=== PATIENT | male | born 1955 | race Caucasian/White ===

== ENCOUNTER 2017-08-01 16:14 | Inpatient (IN) | payer OTHER ==
--- NOTE | 2017-08-01 17:12 | ED ---
General Adult HPI - General Chief complaint: Shortness of Breath Stated complaint: Sob/hard time staying awake Time Seen by Provider: 08/01/17 17:08 Source: family, RN notes reviewed, old records reviewed Mode of arrival: ambulatory Limitations: no limitations - History of Present Illness Initial comments: This is a 61-year-old male to the ER for evaluation of significant shortness of breath. Patient is poor strain secondary to history of autism. Coming with multiple nonspecific symptoms but underlying cc dying. Patient is able to give heart is racing he feels about pain feels chest pain. He is concerned for multiple different issues. Bowel issues heart issues. Patient is no recent travel history no sick contacts or shortness of breath. No current chest pain. Patient does admit to recent exertional shortness of breath. No recent change in medications - Related Data Home Medications Medication Instructions Recorded Confirmed Digoxin [Digitek] 125 mcg PO DAILY 08/01/17 08/01/17 Furosemide [Lasix] 80 mg PO BID 08/01/17 08/01/17 Levothyroxine Sodium [Synthroid] 25 mcg PO DAILY 08/01/17 08/01/17 Lisinopril [Zestril] 5 mg PO DAILY 08/01/17 08/01/17 Metoprolol Tartrate [Lopressor] 100 mg PO DAILY 08/01/17 08/01/17 Spironolactone [Aldactone] 25 mg PO DAILY 08/01/17 08/01/17 Warfarin [Coumadin] 5 mg PO DAILY 08/01/17 08/01/17 glyBURIDE [Diabeta] 10 mg PO DAILY 08/01/17 08/01/17 metFORMIN HCL 2,000 mg PO DAILY 08/01/17 08/01/17 Allergies Allergy/AdvReac Type Severity Reaction Status Date / Time No Known Allergies Allergy Verified 08/01/17 18:46 Review of Systems ROS Statement: Those systems with pertinent positive or pertinent negative responses have been documented in the HPI. ROS Other: All systems not noted in ROS Statement are negative. 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 Past Psychological History: Anxiety Smoking Status: Never smoker Past Alcohol Use History: None Reported Past Drug Use History: None Reported General Exam Limitations: no limitations General appearance: alert, in no apparent distress Head exam: Present: atraumatic, normocephalic, normal inspection Eye exam: Present: normal appearance, PERRL, EOMI. Absent: scleral icterus, conjunctival injection, periorbital swelling ENT exam: Present: normal exam, mucous membranes moist Neck exam: Present: normal inspection. Absent: tenderness, meningismus, lymphadenopathy Respiratory exam: Present: normal lung sounds bilaterally, rales. Absent: respiratory distress, wheezes, rhonchi, stridor Cardiovascular Exam: Present: tachycardia, irregular rhythm, normal heart sounds. Absent: systolic murmur, diastolic murmur, rubs, gallop, clicks GI/Abdominal exam: Present: soft, normal bowel sounds. Absent: distended, tenderness, guarding, rebound, rigid Extremities exam: Present: normal inspection, full ROM, normal capillary refill. Absent: tenderness, pedal edema, joint swelling, calf tenderness Back exam: Present: normal inspection Neurological exam: Present: alert, oriented X3, CN II-XII intact Psychiatric exam: Present: normal affect, normal mood Skin exam: Present: warm, dry, intact, normal color. Absent: rash Course Vital Signs 08/01/17 08/01/17 08/01/17 16:20 18:31 19:00 Temperature 96.7 F L Pulse Rate 118 H 119 H 114 H Respiratory 20 20 20 Rate Blood Pressure 138/87 124/78 124/78 O2 Sat by Pulse 100 99 99 Oximetry - Reevaluation(s) Reevaluation #1: 08/01/17 20:12 Patient explained at length regarding medical decision-making, questions are answered EKG Findings - EKG Comments: EKG Findings:: EKG shows A. fib with RVR rate 127, QRS 06, QTc 508 Medical Decision Making - Medical Decision Making 61 male the ER for evaluation. Patient is positive troponin, positive chest pain. Patient also given rate control for A. fib with RVR - Lab Data Result diagrams: 08/01/17 17:50 08/01/17 17:50 Lab Results 04/30/18 04/30/18 04/30/18 Range/Units 17:50 17:50 17:50 WBC 12.2 H (3.8-10.6) k/uL RBC 6.12 H (4.30-5.90) m/uL Hgb 17.6 H (13.0-17.5) gm/dL Hct 52.5 (39.0-53.0) % MCV 85.8 (80.0-100.0) fL MCH 28.8 (25.0-35.0) pg MCHC 33.6 (31.0-37.0) g/dL RDW 14.3 (11.5-15.5) % Plt Count 254 (150-450) k/uL Neutrophils % 76 % Lymphocytes % 17 % Monocytes % 6 % Eosinophils % 0 % Basophils % 0 % Neutrophils # 9.2 H (1.3-7.7) k/uL Lymphocytes # 2.0 (1.0-4.8) k/uL Monocytes # 0.8 (0-1.0) k/uL Eosinophils # 0.0 (0-0.7) k/uL Basophils # 0.0 (0-0.2) k/uL PT (9.0-12.0) sec INR (<1.2) APTT (22.0-30.0) sec Sodium 131 L (137-145) mmol/L Potassium 4.8 (3.5-5.1) mmol/L Chloride 92 L (98-107) mmol/L Carbon Dioxide 22 (22-30) mmol/L Anion Gap 17 mmol/L BUN 42 H (9-20) mg/dL Creatinine 0.93 (0.66-1.25) mg/dL Est GFR (CKD-EPI)AfAm >90 (>60 ml/min/1.73 sqM) Est GFR (CKD-EPI)NonAf 90 (>60 ml/min/1.73 sqM) Glucose 426 H (74-99) mg/dL Calcium 9.0 (8.4-10.2) mg/dL Total Bilirubin 2.5 H (0.2-1.3) mg/dL AST 1475 H (17-59) U/L ALT 534 H (21-72) U/L Alkaline Phosphatase 121 (38-126) U/L Total Creatine Kinase 382 H (55-170) U/L CK-MB (CK-2) 18.9 H* (0.0-2.4) ng/mL CK-MB (CK-2) Rel Index 4.9 Troponin I 3.240 H* (0.000-0.034) ng/mL Total Protein 6.8 (6.3-8.2) g/dL Albumin 3.7 (3.5-5.0) g/dL Lipase (23-300) U/L Acetaminophen ug/mL 08/01/17 08/01/17 Range/Units 17:50 17:50 WBC (3.8-10.6) k/uL RBC (4.30-5.90) m/uL Hgb (13.0-17.5) gm/dL Hct (39.0-53.0) % MCV (80.0-100.0) fL MCH (25.0-35.0) pg MCHC (31.0-37.0) g/dL RDW (11.5-15.5) % Plt Count (150-450) k/uL Neutrophils % % Lymphocytes % % Monocytes % % Eosinophils % % Basophils % % Neutrophils # (1.3-7.7) k/uL Lymphocytes # (1.0-4.8) k/uL Monocytes # (0-1.0) k/uL Eosinophils # (0-0.7) k/uL Basophils # (0-0.2) k/uL PT 33.6 H (9.0-12.0) sec INR 3.7 H (<1.2) APTT 25.6 (22.0-30.0) sec Sodium (137-145) mmol/L Potassium (3.5-5.1) mmol/L Chloride (98-107) mmol/L Carbon Dioxide (22-30) mmol/L Anion Gap mmol/L BUN (9-20) mg/dL Creatinine (0.66-1.25) mg/dL Est GFR (CKD-EPI)AfAm (>60 ml/min/1.73 sqM) Est GFR (CKD-EPI)NonAf (>60 ml/min/1.73 sqM) Glucose (74-99) mg/dL Calcium (8.4-10.2) mg/dL Total Bilirubin (0.2-1.3) mg/dL AST (17-59) U/L ALT (21-72) U/L Alkaline Phosphatase (38-126) U/L Total Creatine Kinase (55-170) U/L CK-MB (CK-2) (0.0-2.4) ng/mL CK-MB (CK-2) Rel Index Troponin I (0.000-0.034) ng/mL Total Protein (6.3-8.2) g/dL Albumin (3.5-5.0) g/dL Lipase 281 (23-300) U/L Acetaminophen <10.0 ug/mL - Radiology Data Radiology results: report reviewed (Chest x-ray negative CTA chest negative CT and pelvis negative ultrasound, are pending), image reviewed Critical Care Time Critical Care Time: Yes Total Critical Care Time: 31 Disposition Clinical Impression: NSTEMI (non-ST elevated myocardial infarction), Atrial fibrillation with RVR Disposition: ADMITTED IP TO THIS [facility] Condition: Serious Is patient prescribed a controlled substance at d/c from ED?: No Referrals: Nba Castro MD [Primary Care Provider] - 1-2 days
[2017-08-01] MEDS ORDERED: DILTIAZEM 5 MG/1 ML (25ML VIAL) IV STA (17:48)
[2017-08-01] MEDS ORDERED: DILTIAZEM 50 MG in SODIUM CHLORIDE 0.9% 40 ML IV ONE ×2 (17:48→18:00)
[2017-08-01] MEDS ORDERED: RX INFO: IV CONTRAST WAS GIVEN 1 EACH MISC MISCELLANE PRN (18:13)
[2017-08-01 18:16] LABS: Basophils % (A) 0 %; Eosinophils % (A) 0 %; HCT 52.5 % (39.0-53.0); HGB 17.6 gm/dL (13.0-17.5); Lymphocytes % (A) 17 %; MCH 28.8 pg (25.0-35.0); MCHC 33.6 g/dL (31.0-37.0); MCV 85.8 fL (80.0-100.0); Mean Platelet Volume 7.6; Monocytes # (A) 0.8 k/uL (0-1.0); Monocytes % (A) 6 %; Neutrophils # (A) 9.2 k/uL (1.3-7.7); Neutrophils % (A) 76 %; Platelet Count 254 k/uL (150-450); RBC 6.12 m/uL (4.30-5.90); RDW 14.3 % (11.5-15.5); WBC 12.2 k/uL (3.8-10.6)
[2017-08-01 18:17] LABS: ALT 534 U/L (21-72); Albumin 3.7 g/dL (3.5-5.0); Alkaline Phosphatase 121 U/L (38-126); Anion Gap 17 mmol/L; Blood Urea Nitrogen 42 mg/dL (9-20); Carbon Dioxide 22 mmol/L (22-30); Chloride 92 mmol/L (98-107); Glucose 426 mg/dL (74-99); Potassium 4.8 mmol/L (3.5-5.1); Sodium 131 mmol/L (137-145); Total Bilirubin 2.5 mg/dL (0.2-1.3); Total Protein 6.8 g/dL (6.3-8.2)
[2017-08-01 18:27] LABS: AST 1475 U/L (17-59)
[2017-08-01 18:38] LABS: INR 3.7 (<1.2); Partial Thromboplastin Time 25.6 sec (22.0-30.0); Prothrombin Time 33.6 sec (9.0-12.0)
[2017-08-01 18:50] LABS: Creatine Kinase MB 18.9 ng/mL (0.0-2.4); Troponin I 3.24 ng/mL (0.000-0.034)
[2017-08-01] MEDS ORDERED: SODIUM CHLORIDE 0.9% 500 ML IV STA (19:04)
[2017-08-01] MEDS ORDERED: SODIUM CHLORIDE 0.9% 1,000 ML IV STA ×2 (19:04)
[2017-08-01 19:16] LABS: Acetaminophen <10.0 ug/mL; Lipase 281 U/L (23-300)
--- NOTE | 2017-08-01 19:30 | CT ---
EXAMINATION TYPE: CT angio chest DATE OF EXAM: 08/01/2017 COMPARISON: NONE HISTORY: Shortness of breath. History of damaged spleen. CT DLP: 396.2 mGycm. Automated Exposure Control for Dose Reduction was Utilized. CONTRAST: CTA scan of the thorax is performed with IV Contrast, patient injected with 100 mL of Isovue 300, pul monary embolism protocol. MIP Images are created on CT scanner and reviewed. FINDINGS: LUNGS: The lungs are grossly clear, there is no concerning parenchymal mass or nodule identified. T here is no pleural effusion or pneumothorax seen. The tracheobronchial tree is patent. MEDIASTINUM: There is satisfactory enhancement of the pulmonary artery and its branches, there is no CT evidence for pulmonary embolism. There are no greater than 1 cm hilar or mediastinal lymph nodes. No significant pericardial effusion is seen. Fairly moderate to severe cardiomegaly is present. Th ere is moderate to severe 3 vessel coronary artery calcification seen. OTHER: Moderate to severe multilevel spurring in the thoracic spine is noted. Please refer to same da y CT abdomen and pelvis report for complete details of upper abdomen. IMPRESSION: No CT evidence for acute pulmonary embolism. Cardiomegaly without acute pulmonary process .
--- NOTE | 2017-08-01 19:33 | CT ---
EXAMINATION TYPE: CT abdomen pelvis w con DATE OF EXAM: 08/01/2017 COMPARISON: NONE HISTORY: Shortness of breath and abdominal pain. History of damaged spleen. CT DLP: 1646.9 mGycm, Automated Exposure Control for Dose Reduction was Utilized. CONTRAST: CT scan of the abdomen and pelvis is performed without oral but with IV Contrast, patient injected wi th 100 mL of Isovue 300. FINDINGS: LUNG BASES: Please refer to same day CTA report for complete details. LIVER/GB: No significant abnormality is appreciated. PANCREAS: Some mild generalized fat replaced atrophy is seen. SPLEEN: No significant abnormality is seen. ADRENALS: No significant abnormality is seen. KIDNEYS: No significant abnormality is seen. BOWEL: Evaluation bowel is suboptimal secondary to lack of enteric contrast. There is no suspicious s mall or large bowel dilatation. There are some scattered colonic diverticula. There is mild wall thic kening in the sigmoid colon, this is likely product of poor distention a colitis should be excluded c linically. PROSTATE/SEMINAL VESICLES: No gross abnormality seen. LYMPH NODES: No greater than 1cm abdominal or pelvic lymph nodes are appreciated. OSSEOUS STRUCTURES: There is moderate multilevel spurring in the spine. There is multilevel facet art hropathy in the mid to lower lumbar spine. There is moderate spurring and joint space loss in both hi ps. There is symmetric mild spurring in narrowing bilateral sacroiliac joints. OTHER: Small to moderate amount of free fluid in pelvis near axial image 83 is noted. There is mild t o moderate calcified plaque of aorta extending into pelvic branch vessels. IMPRESSION: No significant acute finding is seen to account for patient's clinical symptoms.
[2017-08-01] MEDS ORDERED: NITROGLYCERIN SL TABS 0.4 MG TAB SUBLINGUAL PRN (20:10)
[2017-08-01] MEDS ORDERED: ASPIRIN 81 MG PO STA (20:10)
[2017-08-01] MEDS ORDERED: AMPICILLIN-SULBACTAM 3 GM in SODIUM CHLORIDE 0.9% 100 ML IVPB STA (20:52)
--- NOTE | 2017-08-01 21:22 | US ---
EXAMINATION TYPE: US gallbladder DATE OF EXAM: 08/01/2017 COMPARISON: CT abdomen and pelvis earlier today CLINICAL HISTORY: Pain. RUQ pain elevated liver enzymes. EXAM MEASUREMENTS: Liver Length: 17.5 cm Gallbladder Wall: 0.5 cm CBD: 0.4 cm Right Kidney: 11.9 x 5.1 x 5.2 cm Pancreas: Tail obscured by overlying bowel gas Liver: wnl Gallbladder: No stones seen thickened wall 0.5 cm. Evidence for sonographic Zhu's sign: No CBD: wnl Right Kidney: No hydronephrosis or masses seen Visualized pancreas shows no worrisome mass or ductal dilatation. IVC is seen near hepatic dome. Visu alized liver is heterogeneously hyperechoic. No worrisome intrahepatic ductal dilatation is seen. Gal lbladder seen without shadowing mobile gallstones. Mild gallbladder wall thickening is present. No pe richolecystic fluid is noted. Sonographic Zhu sign is negative. IMPRESSION: No shadowing mobile gallstones or secondary ultrasound evidence for acute cholecystitis. Heterogeneous hyperechoic appearance of liver could reflect product of mild diffuse fatty infiltratio n of underlying hepatocellular disease.
[2017-08-01] MEDS: SODIUM CHLORIDE 0.9% 1,000 ML IV SCH (23:11)
[2017-08-01] MEDS: METOPROLOL TARTRATE 50 MG TAB PO SCH (23:41)
[2017-08-02 00:18] LABS: Creatine Kinase MB 16.7 ng/mL (0.0-2.4); Troponin I 2.99 ng/mL (0.000-0.034)
[2017-08-02] MEDS: SODIUM CHLORIDE 0.9% 1,000 ML IV SCH (05:32)
[2017-08-02 06:18] LABS: Glucose,Whole Blood 248 mg/dL (75-99)
[2017-08-02] MEDS: INSULIN ASPART 100 UNIT/ML 1 ML 10 ML VIAL SQ SCH ×4 (06:22→21:08)
[2017-08-02 06:49] LABS: Basophils # (A) 0.1 k/uL (0-0.2); Basophils % (A) 0 %; Eosinophils # (A) 0.1 k/uL (0-0.7); Eosinophils % (A) 1 %; HCT 47.8 % (39.0-53.0); HGB 15.5 gm/dL (13.0-17.5); Lymphocytes # (A) 3.1 k/uL (1.0-4.8); Lymphocytes % (A) 24 %; MCH 27.7 pg (25.0-35.0); MCHC 32.4 g/dL (31.0-37.0); MCV 85.6 fL (80.0-100.0); Monocytes # (A) 0.9 k/uL (0-1.0); Monocytes % (A) 7 %; Neutrophils # (A) 8.4 k/uL (1.3-7.7); Neutrophils % (A) 66 %; Platelet Count 263 k/uL (150-450); RBC 5.59 m/uL (4.30-5.90); RDW 14.4 % (11.5-15.5); WBC 12.8 k/uL (3.8-10.6)
[2017-08-02 06:56] LABS: ALT 443 U/L (21-72); Albumin 3.2 g/dL (3.5-5.0); Alkaline Phosphatase 126 U/L (38-126); Anion Gap 12 mmol/L; Blood Urea Nitrogen 40 mg/dL (9-20); Calcium 8.3 mg/dL (8.4-10.2); Carbon Dioxide 25 mmol/L (22-30); Chloride 100 mmol/L (98-107); Cholesterol 95 mg/dL (<200); Glucose 249 mg/dL (74-99); HDL Cholesterol 13 mg/dL (40-60); LDL Cholesterol,Calculated 61 mg/dL (0-99); Magnesium 1.9 mg/dL (1.6-2.3); Potassium 3.8 mmol/L (3.5-5.1); Sodium 137 mmol/L (137-145); Total Bilirubin 1.6 mg/dL (0.2-1.3); Total Protein 6.2 g/dL (6.3-8.2); Triglycerides 106 mg/dL (<150)
[2017-08-02 07:11] LABS: AST 1013 U/L (17-59)
[2017-08-02 07:17] LABS: Creatine Kinase MB 12.4 ng/mL (0.0-2.4); Troponin I 2.43 ng/mL (0.000-0.034)
[2017-08-02] MEDS ORDERED: AMPICILLIN-SULBACTAM 3 GM in SODIUM CHLORIDE 0.9% 100 ML IVPB SCH (08:00)
--- NOTE | 2017-08-02 08:14 | P.CRDCN ---
History of Present Illness Consult date: 08/02/17 Requesting physician: Elly Hernandez Consult reason: chest pain, shortness of breath Chief complaint: Shortness of breath History of present illness: This is a 61-year-old gentleman with history of autism, very difficult to get a history from the patient overall, he states that he's been quite short of breath prior to coming here, I asked him a number of times that he's been having any chest discomfort, he did not answer yes or no to this question. Patient does have history of hypertension, diabetes, hyperlipidemia, chronic persistent atrial fibrillation on Coumadin for anticoagulation. EKG on arrival here showed atrial fibrillation with a rapid ventricular response ST-T wave changes noted in the lateral leads, subsequent EKG continues to show atrial fibrillation heart rate under better control with persistent EKG changes in the lateral leads. Blood pressure on arrival 138/80 with a heart rate of 118 , 100% on room air. CT of the abdomen was performed which did not reveal any significant acute finding. CT of the chest was performed which did not reveal evidence of pulmonary embolism. Ultrasound of the gallbladder was performed which did not reveal any evidence of cholecystitis heterogeneous hyperechoic appearance of the liver could reflect mild diffuse fatty infiltration. No chest x-ray performed. White blood cell count on admission 12.2, hemoglobin 17.6, platelet count 254. Sodium 137, potassium 3.8, BUN 40, creatinine 0.9. Blood glucose on arrival 426. 249 this morning. Magnesium 1.9 this morning. INR 3.7. Total bilirubin on admission 2.5, 1.6 this morning, AST on admission 1475, 1013 this morning. ALT on admission 534, 443 this morning. Alk phos is normal. Troponin on admission 3.2, subsequent troponins 2.9 and 2.4. BNP level not obtained. At the time of my examination this morning, patient is quite sleepy, he is sitting up in the chair. He did state that he slept well last night, he does not want to answer many questions, he asked if we could speak with his sisters with arrive. He denies any chest pain at present while he is sitting up in the chair. 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 Past Psychological History: Anxiety Smoking Status: Never smoker Past Alcohol Use History: None Reported Past Drug Use History: None Reported - Past Family History Mother Family Medical History: Diabetes Mellitus, Myocardial Infarction ([place]) Father Additional Family Medical History / Comment(s): alcoholism Sister(s) Family Medical History: Diabetes Mellitus Medications and Allergies Home Medications Medication Instructions Recorded Confirmed Type Digoxin [Digitek] 125 mcg PO DAILY 08/01/17 08/01/17 History Furosemide [Lasix] 80 mg PO BID 08/01/17 08/01/17 History Levothyroxine Sodium [Synthroid] 25 mcg PO DAILY 08/01/17 08/01/17 History Lisinopril [Zestril] 5 mg PO DAILY 08/01/17 08/01/17 History Metoprolol Tartrate [Lopressor] 100 mg PO DAILY 08/01/17 08/01/17 History Spironolactone [Aldactone] 25 mg PO DAILY 08/01/17 08/01/17 History Warfarin [Coumadin] 5 mg PO DAILY 08/01/17 08/01/17 History glyBURIDE [Diabeta] 10 mg PO DAILY 08/01/17 08/01/17 History metFORMIN HCL 2,000 mg PO DAILY 08/01/17 08/01/17 History Allergies Allergy/AdvReac Type Severity Reaction Status Date / Time No Known Allergies Allergy Verified 08/01/17 18:46 Physical Exam Vitals: Vital Signs Temp Pulse Pulse Resp BP BP Pulse Ox 08/02/17 04:00 98 F 89 18 102/54 97 08/02/17 00:00 98 F 121 H 18 114/70 98 08/01/17 22:00 98.3 F 115 H 20 110/79 96 08/01/17 20:56 98 F 106 H 18 116/67 97 08/01/17 20:00 118 H 20 124/68 99 08/01/17 19:00 96.7 F L 114 H 20 124/78 99 08/01/17 18:31 119 H 20 124/78 99 08/01/17 16:20 118 H 20 138/87 100 Intake and Output 08/01/17 08/02/17 08/02/17 22:59 06:59 14:59 Intake Total 240 240 Balance 240 240 Intake: Oral 240 240 Other: Voiding Method Toilet # Voids 1 2 # Bowel Movements 1 Weight 105.46 kg 106.2 kg PHYSICAL EXAMINATION: HEENT: Head is atraumatic, normocephalic. Pupils equal, round. Neck is supple. There is elevated jugular venous pressure. HEART EXAMINATION: Heart S1 and S2 irregularly irregular a systolic murmur is heard. CHEST EXAMINATION: Lungs reveal diminished air entry to bilateral bases. ABDOMEN: Soft, nontender. Bowel sounds are heard. No organomegaly noted. EXTREMITIES: 2+ peripheral pulses with evidence of peripheral edema and no calf tenderness noted. NEUROLOGIC [patient is awake, sleepy, mildly agitated Results 08/02/17 06:11 08/02/17 06:11 Cardiac Enzymes 08/01/17 08/01/17 08/01/17 Range/Units 17:50 17:50 23:17 AST 1475 H (17-59) U/L CK-MB (CK-2) 18.9 H* 16.7 H* (0.0-2.4) ng/mL Troponin I 3.240 H* 2.990 H* (0.000-0.034) ng/mL 08/02/17 08/02/17 Range/Units 06:11 06:11 AST 1013 H (17-59) U/L CK-MB (CK-2) 12.4 H* (0.0-2.4) ng/mL Troponin I 2.430 H* (0.000-0.034) ng/mL Coagulation 08/01/17 Range/Units 17:50 PT 33.6 H (9.0-12.0) sec APTT 25.6 (22.0-30.0) sec Lipids 08/02/17 Range/Units 06:11 Triglycerides 106 (<150) mg/dL Cholesterol 95 (<200) mg/dL HDL Cholesterol 13 L (40-60) mg/dL CBC 08/01/17 08/02/17 Range/Units 17:50 06:11 WBC 12.2 H 12.8 H (3.8-10.6) k/uL RBC 6.12 H 5.59 (4.30-5.90) m/uL Hgb 17.6 H 15.5 (13.0-17.5) gm/dL Hct 52.5 47.8 (39.0-53.0) % Plt Count 254 263 (150-450) k/uL Comprehensive Metabolic Panel 08/01/17 08/02/17 Range/Units 17:50 06:11 Sodium 131 L 137 (137-145) mmol/L Potassium 4.8 3.8 (3.5-5.1) mmol/L Chloride 92 L 100 (98-107) mmol/L Carbon Dioxide 22 25 (22-30) mmol/L BUN 42 H 40 H (9-20) mg/dL Creatinine 0.93 0.95 (0.66-1.25) mg/dL Glucose 426 H 249 H (74-99) mg/dL Calcium 9.0 8.3 L (8.4-10.2) mg/dL AST 1475 H 1013 H (17-59) U/L ALT 534 H 443 H (21-72) U/L Alkaline Phosphatase 121 126 (38-126) U/L Total Protein 6.8 6.2 L (6.3-8.2) g/dL Albumin 3.7 3.2 L (3.5-5.0) g/dL Current Medications Generic Name Dose Route Start Last Admin Trade Name Freq PRN Reason Stop Dose Admin Aspirin 325 mg 08/02/17 09:00 Aspirin PO DAILY [facility] Atorvastatin Calcium 80 mg 08/02/17 09:00 Lipitor PO DAILY [facility] Sodium Chloride 1,000 mls @ 100 mls/hr 08/01/17 20:15 08/02/17 05:32 Saline 0.9% IV Not Given .Q10H [facility] Ampicillin Sodium/Sulbactam 100 mls @ 100 mls/hr 08/02/17 08:00 Sodium 3 gm/ Sodium Chloride IVPB Q8HR [facility] Insulin Aspart 0 unit 08/02/17 07:30 08/02/17 06:22 Novolog SQ 5 unit ACHS [facility] Administration Protocol Metoprolol Tartrate 50 mg 08/01/17 21:00 08/01/17 23:41 Lopressor PO 50 mg BID [facility] Administration Miscellaneous Information 1 each 08/01/17 18:13 08/01/17 18:43 Rx Info: Iv Contrast Was Given MISCELLANE 08/03/17 18:13 1 each DAILY PRN Administration Per Protocol Nitroglycerin 0.4 mg 08/01/17 20:10 Nitrostat SUBLINGUAL Q5M PRN Chest Pain Intake and Output 08/01/17 08/02/17 08/02/17 22:59 06:59 14:59 Intake Total 240 240 Balance 240 240 Intake: Oral 240 240 Other: Voiding Method Toilet # Voids 1 2 # Bowel Movements 1 Weight 105.46 kg 106.2 kg 08/02/17 06:11 08/02/17 06:11 EKG Interpretations (text) EKG shows atrial fibrillation with rapid ventricular response, ST-T wave changes noted in the lateral leads. Assessment and Plan Plan: Assessment and plan #1 symptoms of shortness of breath with evidence of PND and orthopnea suggesting congestive heart failure. Shortness of breath could also been exasperated by Jim neumann with RVR. We will obtain a chest x-ray and BNP level. #2 possible non-Q-wave myocardial infarction, initial troponin 3.2 subsequent troponin 2.9 and 2.4. We will obtain an echocardiogram with Doppler study. EKG shows atrial fibrillation with ST-T wave changes noted in the lateral leads. #3 chronic persistent atrial fibrillation on Coumadin for anticoagulation, INR 3.7. #4 diabetes, uncontrolled # 5 hypertension #6 hyperlipidemia #7 autism #8 elevated liver enzymes, likely secondary to congestion. Ultrasound of the gallbladder did not reveal evidence for acute cholecystitis possible fatty infiltration of the liver. CT of the abdomen did not reveal any significant acute findings. #9 autism Plan We will obtain a chest x-ray, echocardiogram with Doppler study, BNP level stat. Obtain TSH level. Decrease aspirin 81 mg daily, continue Lipitor 80 mg daily, metoprolol 50 mg one tablet by mouth twice a day, Cardizem drip has been discontinued. We will give the patient one time dose of IV Lasix 40 mg, and speak with the sister's once they arrive. Further recommendations will be based on these findings and patient's clinical course. DNP note has been reviewed, I agree with a documented findings and plan of care. Patient was seen and examined.
[2017-08-02] MEDS ORDERED: ASPIRIN 325 MG TAB PO SCH (09:00)
--- NOTE | 2017-08-02 09:09 | XR ---
EXAMINATION TYPE: XR chest 2V DATE OF EXAM: 08/02/2017 COMPARISON: CTA chest from yesterday. HISTORY: Shortness of breath and cough. TECHNIQUE: Frontal and lateral views of the chest are obtained. FINDINGS: There is no focal air space opacity or pneumothorax seen. There are new tiny bilateral pl eural effusions with blunting of posterior costophrenic angles. The cardiac silhouette size remains e nlarged. Degenerative change in both shoulders and spine is redemonstrated. IMPRESSION: Cardiomegaly with new tiny bilateral pleural effusions. Correlate for CHF exacerbation. No suspicious new focal infiltrate is seen.
[2017-08-02] MEDS: ASPIRIN 81 MG PO SCH (09:23)
[2017-08-02] MEDS: ATORVASTATIN 80 MG TAB PO SCH (09:23)
[2017-08-02] MEDS: METOPROLOL TARTRATE 50 MG TAB PO SCH ×2 (09:23→21:09)
--- NOTE | 2017-08-02 11:33 | ECHOF ---
Referral Reason:elevTrop MEASUREMENTS -------- HEIGHT: 182.9 cm WEIGHT: 106.1 kg BP: 102/54 RVIDd: 3.4 cm (< 3.3) IVSd: 1.3 cm (0.6 - 1.1) LVIDd: 6.5 cm (3.9 - 5.3) LVPWd: 1.2 cm (0.6 - 1.1) IVSs: 1.3 cm LVIDs: 5.9 cm LVPWs: 1.9 cm LA Diam: 4.8 cm (2.7 - 3.8) LAESV Index (A-L): 37.09 ml/m Ao Diam: 3.7 cm (2.0 - 3.7) AV Cusp: 2.2 cm (1.5 - 2.6) MV EXCURSION: 14.924 mm (> 18.000) MV EF SLOPE: 86 mm/s (70 - 150) EPSS: 2.5 cm RAP: 15.00 mmHg RVSP: 42.66 mmHg FINDINGS -------- Atrial fibrillation. This was a technically excellent study. The left ventricle is moderately dilated. There is mild concentric left ventricular hypertrophy. Overall left ventricular systolic function is severely impaired with, an EF < 20%. The right ventricle is mildly enlarged. LA is moderately dilated 34-39 ml/m2 The right atrium is normal in size. Aortic valve is trileaflet and is mildly thickened. Trace amount of aortic regurgitation. Mild mitral annular calcification present. Mild mitral regurgitation is present. Mild tricuspid regurgitation present. There is mild pulmonary hypertension. The right ventricular systolic pressure, as measured by Doppler, is 42.66mmHg. Trace/mild (physiologic) pulmonic regurgitation. The aortic root size is normal. The inferior vena cava is dilated with poor inspiratory collapse which is consistent with estimated r ight atrial pressure of 15 mmHg. There is no pericardial effusion. CONCLUSIONS -------- 1. Atrial fibrillation. 2. This was a technically excellent study. 3. The left ventricle is moderately dilated. 4. There is mild concentric left ventricular hypertrophy. 5. Overall left ventricular systolic function is severely impaired with, an EF < 20%. 6. The right ventricle is mildly enlarged. 7. LA is moderately dilated 34-39 ml/m2 8. The right atrium is normal in size. 9. Aortic valve is trileaflet and is mildly thickened. 10. Trace amount of aortic regurgitation. 11. Mild mitral annular calcification present. 12. Mild mitral regurgitation is present. 13. Mild tricuspid regurgitation present. 14. There is mild pulmonary hypertension. 15. The right ventricular systolic pressure, as measured by Doppler, is 42.66mmHg. 16. Trace/mild (physiologic) pulmonic regurgitation. 17. The aortic root size is normal. 18. The inferior vena cava is dilated with poor inspiratory collapse which is consistent with estimat ed right atrial pressure of 15 mmHg. 19. There is no pericardial effusion. EVENT DESIGNER: Sobia Colmenares RDCS
[2017-08-02 11:36] LABS: Glucose,Whole Blood 194 mg/dL (75-99)
[2017-08-02] MEDS: FUROSEMIDE 10 MG/ML 4 ML VIAL IV SCH ×3 (13:07→21:09)
[2017-08-02 15:36] LABS: Hemoglobin A1C 12.4 % (4.0-6.0)
--- NOTE | 2017-08-02 16:10 | P.HPIM ---
History of Present Illness Patient given his shortness of breath or did give history of orthopnea unsure of the history of proximal nocturnal dyspnea. Patient does have history of aspargers syndrome and the very hard to get history from the patient. Although patient is agreeable in following the recommendations from medical team. Patient denied any chest discomfort. Patient's chest x-ray did show bilateral pleural effusions did get an echo cardiac remission ejection fraction of 20% patient does have a have elevated troponins up to 3.5. Patient does have history of atrial fibrillation chronic on Coumadin and anticoagulate with elevated INR. Patient does have highly elevated liver enzymes probably secondary to hepatic congestion ultrasound of the liver and gallbladder did not show any. Patient was started on IV fluids which were discontinued patient was started on IV Lasix patient does have elevated BNP. Patient is sitting on a chair because of which are given the physis the JVD which is not elevated and not accurate as he was sitting in the chair patient did have an ulcer just below the knee on the lateral aspect on the left side which doesn't appear to be infected Review of Systems REVIEW OF SYSTEMS: CONSTITUTIONAL: No fever, no malaise, no fatigue. HEENT: No recent visual problems or hearing problems. Denied any sore throat. CARDIOVASCULAR: as mentioned in HPI PULMONARY: no cough, no hemoptysis. GASTROINTESTINAL: No diarrhea, no nausea, no vomiting, no abdominal pain. Normoactive bowel sounds. NEUROLOGICAL: No headaches, no weakness, no numbness. HEMATOLOGICAL: Denies any bleeding or petechiae. GENITOURINARY: Denies any burning micturition, frequency, or urgency. MUSCULOSKELETAL/RHEUMATOLOGICAL: Denies any joint pain, swelling, or any muscle pain. ENDOCRINE: Denies any polyuria or polydipsia. The rest of the 14-point review of systems is negative. 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 Past Psychological History: Anxiety Smoking Status: Never smoker Past Alcohol Use History: None Reported Past Drug Use History: None Reported - Past Family History Mother Family Medical History: Diabetes Mellitus, Myocardial Infarction (MD) Father Additional Family Medical History / Comment(s): alcoholism Sister(s) Family Medical History: Diabetes Mellitus Medications and Allergies Home Medications Medication Instructions Recorded Confirmed Type Digoxin [Digitek] 125 mcg PO DAILY 08/01/17 08/01/17 History Furosemide [Lasix] 80 mg PO BID 08/01/17 08/01/17 History Levothyroxine Sodium [Synthroid] 25 mcg PO DAILY 08/01/17 08/01/17 History Lisinopril [Zestril] 5 mg PO DAILY 08/01/17 08/01/17 History Metoprolol Tartrate [Lopressor] 100 mg PO DAILY 08/01/17 08/01/17 History Spironolactone [Aldactone] 25 mg PO DAILY 08/01/17 08/01/17 History Warfarin [Coumadin] 5 mg PO DAILY 08/01/17 08/01/17 History glyBURIDE [Diabeta] 10 mg PO DAILY 08/01/17 08/01/17 History metFORMIN HCL 2,000 mg PO DAILY 08/01/17 08/01/17 History Allergies Allergy/AdvReac Type Severity Reaction Status Date / Time No Known Allergies Allergy Verified 08/01/17 18:46 Physical Exam Vitals: Vital Signs Temp Pulse Pulse Resp BP BP Pulse Ox 08/02/17 12:20 95 08/02/17 12:00 96.9 F L 119 H 14 101/73 97 08/02/17 09:15 96.6 F L 109 H 14 110/75 96 08/02/17 04:00 98 F 89 18 102/54 97 08/02/17 00:00 98 F 121 H 18 114/70 98 08/01/17 22:00 98.3 F 115 H 20 110/79 96 08/01/17 20:56 98 F 106 H 18 116/67 97 08/01/17 20:00 118 H 20 124/68 99 08/01/17 19:00 96.7 F L 114 H 20 124/78 99 08/01/17 18:31 119 H 20 124/78 99 08/01/17 16:20 118 H 20 138/87 100 Intake and Output 08/02/17 08/02/17 08/02/17 06:59 14:59 22:59 Intake Total 240 1180 Balance 240 1180 Intake: Intake, IV Titration 600 Amount Ampicillin-Sulbactam 3 gm 100 In Sodium Chloride 0.9% 100 ml @ 100 mls/hr IVPB Q8HR [facility] Rx#:[id number] Sodium Chloride 0.9% 1, 500 000 ml @ 100 mls/hr IV . Q10H [facility] Rx#:[id number] Oral 240 580 Other: Voiding Method Toilet Toilet # Voids 2 # Bowel Movements 1 Weight 106.2 kg PHYSICAL EXAMINATION: GENERAL: The patient is alert and oriented x3, not in any acute distress. Well developed, well nourished. HEENT: Pupils are round and equally reacting to light. EOMI. No scleral icterus. No conjunctival pallor. Normocephalic, atraumatic. No pharyngeal erythema. No thyromegaly. CARDIOVASCULAR: S1 and S2 present. No murmurs, rubs, or gallops. Unable to assess JVD PULMONARY: Chest is clear to auscultation, no wheezing or crackles. ABDOMEN: Soft, nontender, nondistended, normoactive bowel sounds. No palpable organomegaly. MUSCULOSKELETAL: No joint swelling or deformity. EXTREMITIES: No clubbing, bilateral pedal edema NEUROLOGICAL: Gross neurological examination did not reveal any focal deficits. SKIN: No rashes. Results CBC & Chem 7: 08/02/17 06:11 08/02/17 06:11 Labs: Abnormal Lab Results - Last 24 Hours (Table) 08/01/17 08/01/17 08/01/17 Range/Units 17:50 17:50 17:50 WBC 12.2 H (3.8-10.6) k/uL RBC 6.12 H (4.30-5.90) m/uL Hgb 17.6 H (13.0-17.5) gm/dL Neutrophils # 9.2 H (1.3-7.7) k/uL PT (9.0-12.0) sec INR (<1.2) Sodium 131 L (137-145) mmol/L Chloride 92 L (98-107) mmol/L BUN 42 H (9-20) mg/dL Glucose 426 H (74-99) mg/dL POC Glucose (mg/dL) (75-99) mg/dL Calcium (8.4-10.2) mg/dL Total Bilirubin 2.5 H (0.2-1.3) mg/dL AST 1475 H (17-59) U/L ALT 534 H (21-72) U/L Total Creatine Kinase 382 H (55-170) U/L CK-MB (CK-2) 18.9 H* (0.0-2.4) ng/mL Troponin I 3.240 H* (0.000-0.034) ng/mL Total Protein (6.3-8.2) g/dL Albumin (3.5-5.0) g/dL HDL Cholesterol (40-60) mg/dL 08/01/17 08/01/17 08/02/17 Range/Units 17:50 23:17 06:11 WBC (3.8-10.6) k/uL RBC (4.30-5.90) m/uL Hgb (13.0-17.5) gm/dL Neutrophils # (1.3-7.7) k/uL PT 33.6 H (9.0-12.0) sec INR 3.7 H (<1.2) Sodium (137-145) mmol/L Chloride (98-107) mmol/L BUN 40 H (9-20) mg/dL Glucose 249 H (74-99) mg/dL POC Glucose (mg/dL) (75-99) mg/dL Calcium 8.3 L (8.4-10.2) mg/dL Total Bilirubin 1.6 H (0.2-1.3) mg/dL AST 1013 H (17-59) U/L ALT 443 H (21-72) U/L Total Creatine Kinase 373 H (55-170) U/L CK-MB (CK-2) 16.7 H* (0.0-2.4) ng/mL Troponin I 2.990 H* (0.000-0.034) ng/mL Total Protein 6.2 L (6.3-8.2) g/dL Albumin 3.2 L (3.5-5.0) g/dL HDL Cholesterol 13 L (40-60) mg/dL 08/02/17 08/02/17 08/02/17 Range/Units 06:11 06:11 06:15 WBC 12.8 H (3.8-10.6) k/uL RBC (4.30-5.90) m/uL Hgb (13.0-17.5) gm/dL Neutrophils # 8.4 H (1.3-7.7) k/uL PT (9.0-12.0) sec INR (<1.2) Sodium (137-145) mmol/L Chloride (98-107) mmol/L BUN (9-20) mg/dL Glucose (74-99) mg/dL POC Glucose (mg/dL) 248 H (75-99) mg/dL Calcium (8.4-10.2) mg/dL Total Bilirubin (0.2-1.3) mg/dL AST (17-59) U/L ALT (21-72) U/L Total Creatine Kinase 279 H (55-170) U/L CK-MB (CK-2) 12.4 H* (0.0-2.4) ng/mL Troponin I 2.430 H* (0.000-0.034) ng/mL Total Protein (6.3-8.2) g/dL Albumin (3.5-5.0) g/dL HDL Cholesterol (40-60) mg/dL 08/02/17 Range/Units 11:34 WBC (3.8-10.6) k/uL RBC (4.30-5.90) m/uL Hgb (13.0-17.5) gm/dL Neutrophils # (1.3-7.7) k/uL PT (9.0-12.0) sec INR (<1.2) Sodium (137-145) mmol/L Chloride (98-107) mmol/L BUN (9-20) mg/dL Glucose (74-99) mg/dL POC Glucose (mg/dL) 194 H (75-99) mg/dL Calcium (8.4-10.2) mg/dL Total Bilirubin (0.2-1.3) mg/dL AST (17-59) U/L ALT (21-72) U/L Total Creatine Kinase (55-170) U/L CK-MB (CK-2) (0.0-2.4) ng/mL Troponin I (0.000-0.034) ng/mL Total Protein (6.3-8.2) g/dL Albumin (3.5-5.0) g/dL HDL Cholesterol (40-60) mg/dL Thrombosis Risk Factor Assmnt - Choose All That Apply Each Factor Represents 1 point: Acute MD, Age 41-60 years Thrombosis Risk Factor Assessment Total Risk Factor Score: 2 Thrombosis Risk Factor Assessment Level: Low Risk Assessment and Plan Plan: -Non-ST elevation microinfarction: Patient's INR is super therapeutic will not require any heparin. -Congestive heart failure chronic systolic dysfunction with acute exacerbation patient was an ejection fraction is 20% patient will be started on IV Lasix IV fluids will be discontinued. -Elevated liver enzymes at the to hepatic congestion Lasix as mentioned above -Atrial fibrillation presently rate controlled, Cardizem is not appropriate, which will be discontinued and the patient will be started on beta neetu. Patient is on digoxin which will be restarted back and his levels will be obtained patient clinically does not appear to have any digitoxicity -Type 2 diabetes mellitus -hypertension -Hyper lipidemia -Autism/Asperger's syndrome For above-mentioned chronic medical problems patient will be started and continued on appropriate medications
[2017-08-02 17:04] LABS: Glucose,Whole Blood 380 mg/dL (75-99)
[2017-08-02 21:02] LABS: Glucose,Whole Blood 314 mg/dL (75-99)
[2017-08-02] MEDS ORDERED: ALPRAZolam 0.25 MG TAB PO PRN (23:38)
[2017-08-03] MEDS: LEVOTHYROXINE 25 MCG TAB PO SCH (04:22)
[2017-08-03 06:08] LABS: Glucose,Whole Blood 180 mg/dL (75-99)
[2017-08-03] MEDS: INSULIN ASPART 100 UNIT/ML 1 ML 10 ML VIAL SQ SCH ×4 (06:15→21:13)
[2017-08-03] MEDS: METOPROLOL TARTRATE 50 MG TAB PO SCH ×2 (06:25→21:05)
[2017-08-03 07:01] LABS: HCT 45.8 % (39.0-53.0); HGB 14.8 gm/dL (13.0-17.5); MCH 27.8 pg (25.0-35.0); MCHC 32.3 g/dL (31.0-37.0); MCV 86.2 fL (80.0-100.0); Platelet Count 249 k/uL (150-450); RBC 5.31 m/uL (4.30-5.90); RDW 14.3 % (11.5-15.5)
[2017-08-03 07:23] LABS: Anion Gap 12 mmol/L; Blood Urea Nitrogen 31 mg/dL (9-20); Carbon Dioxide 24 mmol/L (22-30); Chloride 100 mmol/L (98-107); Glucose 170 mg/dL (74-99); Potassium 3.2 mmol/L (3.5-5.1); Sodium 136 mmol/L (137-145)
[2017-08-03] MEDS: DIGOXIN 125 MCG TAB PO SCH ×2 (09:09→11:46)
[2017-08-03] MEDS: ASPIRIN 81 MG PO SCH ×2 (09:09→11:47)
[2017-08-03] MEDS: FUROSEMIDE 10 MG/ML 4 ML VIAL IV SCH ×2 (09:09→21:05)
[2017-08-03] MEDS: ATORVASTATIN 80 MG TAB PO SCH ×2 (09:10→11:49)
[2017-08-03] MEDS: LISINOPRIL 5 MG TAB PO SCH ×2 (09:10→11:49)
--- NOTE | 2017-08-03 11:29 | P.PN ---
Subjective Patient was admitted with congestive heart failure exacerbation chronic systolic dysfunction patient appears to have normal coronary syndrome in in the cardiac cath in the past patient respiratory status improved although sodium started dropping and potassium is low which was supplemented. Patient is didn' t answer any of my questions today. We'll increase the dose of Lasix. Patient has elevated troponin possibly of a non-ST elevation myocardial infarction and management as per cardiology. Objective - Vital Signs Vital signs: Vital Signs Temp 97.4 F L 08/03/17 09:00 Pulse 112 H 08/03/17 09:00 Resp 16 08/03/17 09:00 BP 119/70 08/03/17 09:00 Pulse Ox 97 08/03/17 09:00 Intake & Output 08/02/17 08/03/17 08/03/17 18:59 06:59 18:59 Intake Total 1660 80 Output Total 1 Balance 1660 79 Weight 105.7 kg Intake: IV 80 0.9 80 Intake, IV Titration 600 Amount Ampicillin-Sulbactam 3 gm 100 In Sodium Chloride 0.9% 100 ml @ 100 mls/hr IVPB Q8HR [facility] Rx#:[id number] Sodium Chloride 0.9% 1, 500 000 ml @ 100 mls/hr IV . Q10H [facility] Rx#:[id number] Oral 1060 Output: Urine/Stool Mix 1 Other: Voiding Method Toilet Toilet Toilet # Voids 1 1 # Bowel Movements 0 - Exam PHYSICAL EXAMINATION: GENERAL: The patient is alert and oriented x3, not in any acute distress. Well developed, well nourished. HEENT: Pupils are round and equally reacting to light. EOMI. No scleral icterus. No conjunctival pallor. Normocephalic, atraumatic. No pharyngeal erythema. No thyromegaly. CARDIOVASCULAR: S1 and S2 present. No murmurs, rubs, or gallops. Unable to assess JVD PULMONARY: Chest is clear to auscultation, no wheezing or crackles. ABDOMEN: Soft, nontender, nondistended, normoactive bowel sounds. No palpable organomegaly. MUSCULOSKELETAL: No joint swelling or deformity. EXTREMITIES: No clubbing, bilateral pedal edema NEUROLOGICAL: Gross neurological examination did not reveal any focal deficits. SKIN: No rashes. - Labs CBC & Chem 7: 08/03/17 05:46 08/03/17 05:46 Labs: Abnormal Lab Results - Last 24 Hours (Table) 08/02/17 08/02/17 08/02/17 Range/Units 06:11 11:34 17:03 WBC (3.8-10.6) k/uL Sodium (137-145) mmol/L Potassium (3.5-5.1) mmol/L BUN (9-20) mg/dL Glucose (74-99) mg/dL POC Glucose (mg/dL) 194 H 380 H (75-99) mg/dL Hemoglobin A1c 12.4 H (4.0-6.0) % Calcium (8.4-10.2) mg/dL 08/02/17 08/03/17 08/03/17 Range/Units 21:00 05:46 05:46 WBC 11.0 H (3.8-10.6) k/uL Sodium 136 L (137-145) mmol/L Potassium 3.2 L (3.5-5.1) mmol/L BUN 31 H (9-20) mg/dL Glucose 170 H (74-99) mg/dL POC Glucose (mg/dL) 314 H (75-99) mg/dL Hemoglobin A1c (4.0-6.0) % Calcium 8.0 L (8.4-10.2) mg/dL 08/03/17 Range/Units 06:06 WBC (3.8-10.6) k/uL Sodium (137-145) mmol/L Potassium (3.5-5.1) mmol/L BUN (9-20) mg/dL Glucose (74-99) mg/dL POC Glucose (mg/dL) 180 H (75-99) mg/dL Hemoglobin A1c (4.0-6.0) % Calcium (8.4-10.2) mg/dL Microbiology - Last 24 Hours (Table) 08/01/17 18:00 Blood Culture - Preliminary Blood No Growth after 24 hours Assessment and Plan Plan: -Non-ST elevation microinfarction: Patient's INR is super therapeutic will not require any heparin. -Congestive heart failure chronic systolic dysfunction with acute exacerbation patient was an ejection fraction is 20% patient will be started on IV Lasix -Elevated liver enzymes at the to hepatic congestion Lasix as mentioned above, liver enzymes are coming down we'll repeat liver enzymes tomorrow secondary to hepatic congestion -Atrial fibrillation presently rate controlled, Cardizem is not appropriate, which will be discontinued and the patient will be started on beta neetu. Patient is on digoxin, degenerative is a 0.4 -Type 2 diabetes mellitus -hypertension -Hyper lipidemia -Autism/Asperger's syndrome For above-mentioned chronic medical problems patient will be started and continued on appropriate medications
[2017-08-03 11:39] LABS: Glucose,Whole Blood 177 mg/dL (75-99)
[2017-08-03 11:49] VITALS: BMI 31.6
[2017-08-03] MEDS: B COMPLEX-VIT C-VIT E-ZINC 1 EACH TAB PO SCH (14:13)
--- NOTE | 2017-08-03 14:46 | P.PN ---
Subjective Progress Note Date: 08/03/17 This is a 61-year-old gentleman with history of autism, very difficult to get a history from the patient overall, he states that he's been quite short of breath prior to coming here, I asked him a number of times that he's been having any chest discomfort, he did not answer yes or no to this question. Patient does have history of hypertension, diabetes, hyperlipidemia, chronic persistent atrial fibrillation on Coumadin for anticoagulation. EKG on arrival here showed atrial fibrillation with a rapid ventricular response ST-T wave changes noted in the lateral leads, subsequent EKG continues to show atrial fibrillation heart rate under better control with persistent EKG changes in the lateral leads. Blood pressure on arrival 138/80 with a heart rate of 118 , 100% on room air. CT of the abdomen was performed which did not reveal any significant acute finding. CT of the chest was performed which did not reveal evidence of pulmonary embolism. Ultrasound of the gallbladder was performed which did not reveal any evidence of cholecystitis heterogeneous hyperechoic appearance of the liver could reflect mild diffuse fatty infiltration. No chest x-ray performed. White blood cell count on admission 12.2, hemoglobin 17.6, platelet count 254. Sodium 137, potassium 3.8, BUN 40, creatinine 0.9. Blood glucose on arrival 426. 249 this morning. Magnesium 1.9 this morning. INR 3.7. Total bilirubin on admission 2.5, 1.6 this morning, AST on admission 1475, 1013 this morning. ALT on admission 534, 443 this morning. Alk phos is normal. Troponin on admission 3.2, subsequent troponins 2.9 and 2.4. BNP level not obtained. At the time of my examination this morning, patient is quite sleepy, he is sitting up in the chair. He did state that he slept well last night, he does not want to answer many questions, he asked if we could speak with his sisters with arrive. He denies any chest pain at present while he is sitting up in the chair. 08/03/2017 Patient seen and examined this morning, sister and brother are both at bedside. Patient not eating and drinking much, refusing to take medications. He keeps stating that he only wants to take vitamin B 2. From other hospital, patient did have a cardiac catheterization performed in 2014 which revealed normal coronary artery disease with an ejection fraction of 25-30%. His weight today is down 1 kg from yesterday. White blood cell count 11, hemoglobin 14, platelet count 249. Sodium 136, potassium 3.2, BUN 31, creatinine 0.8. Objective - Vital Signs Vital signs: Vital Signs Temp 97.4 F L 08/03/17 12:00 Pulse 112 H 08/03/17 12:00 Resp 18 08/03/17 12:00 BP 120/78 08/03/17 12:00 Pulse Ox 97 08/03/17 12:00 Intake & Output 08/02/17 08/03/17 08/03/17 18:59 06:59 18:59 Intake Total 1660 80 Output Total 1 Balance 1660 79 Weight 105.7 kg 105.7 kg Intake: IV 80 0.9 80 Intake, IV Titration 600 Amount Ampicillin-Sulbactam 3 gm 100 In Sodium Chloride 0.9% 100 ml @ 100 mls/hr IVPB Q8HR [facility] Rx#:[id number] Sodium Chloride 0.9% 1, 500 000 ml @ 100 mls/hr IV . Q10H [facility] Rx#:[id number] Oral 1060 Output: Urine/Stool Mix 1 Other: Voiding Method Toilet Toilet Toilet # Voids 1 1 1 # Bowel Movements 0 0 - Exam PHYSICAL EXAMINATION: HEENT: Head is atraumatic, normocephalic. Pupils equal, round. Neck is supple. There is no elevated jugular venous pressure. HEART EXAMINATION: Heart S1 and S2 irregular irregular a systolic murmur is heard. CHEST EXAMINATION: Lungs are clear with diminished air entry to bilateral bases. ABDOMEN: Soft, nontender. Bowel sounds are heard. No organomegaly noted. EXTREMITIES: 2+ peripheral pulses with no evidence of peripheral edema and no calf tenderness noted. NEUROLOGIC [patient is awake, alert refusing to take medications or eat food, refusing to answer questions. - Labs CBC & Chem 7: 08/03/17 05:46 08/03/17 05:46 Labs: Abnormal Lab Results - Last 24 Hours (Table) 08/02/17 08/02/17 08/02/17 Range/Units 06:11 17:03 21:00 WBC (3.8-10.6) k/uL Sodium (137-145) mmol/L Potassium (3.5-5.1) mmol/L BUN (9-20) mg/dL Glucose (74-99) mg/dL POC Glucose (mg/dL) 380 H 314 H (75-99) mg/dL Hemoglobin A1c 12.4 H (4.0-6.0) % Calcium (8.4-10.2) mg/dL 08/03/17 08/03/17 08/03/17 Range/Units 05:46 05:46 06:06 WBC 11.0 H (3.8-10.6) k/uL Sodium 136 L (137-145) mmol/L Potassium 3.2 L (3.5-5.1) mmol/L BUN 31 H (9-20) mg/dL Glucose 170 H (74-99) mg/dL POC Glucose (mg/dL) 180 H (75-99) mg/dL Hemoglobin A1c (4.0-6.0) % Calcium 8.0 L (8.4-10.2) mg/dL 08/03/17 Range/Units 11:36 WBC (3.8-10.6) k/uL Sodium (137-145) mmol/L Potassium (3.5-5.1) mmol/L BUN (9-20) mg/dL Glucose (74-99) mg/dL POC Glucose (mg/dL) 177 H (75-99) mg/dL Hemoglobin A1c (4.0-6.0) % Calcium (8.4-10.2) mg/dL Microbiology - Last 24 Hours (Table) 08/01/17 18:00 Blood Culture - Preliminary Blood No Growth after 24 hours Assessment and Plan Plan: Assessment and plan #1 symptoms of shortness of breath with evidence of PND and orthopnea suggesting congestive heart failure. Shortness of breath could also been exasperated by Jim neumann with RVR. We will obtain a chest x-ray and BNP level. #2 possible non-Q-wave myocardial infarction, initial troponin 3.2 subsequent troponin 2.9 and 2.4. We will obtain an echocardiogram with Doppler study. EKG shows atrial fibrillation with ST-T wave changes noted in the lateral leads. #3 chronic persistent atrial fibrillation on Coumadin for anticoagulation, INR 3.7. #4 diabetes, uncontrolled # 5 hypertension #6 hyperlipidemia #7 autism #8 elevated liver enzymes, likely secondary to congestion. Ultrasound of the gallbladder did not reveal evidence for acute cholecystitis possible fatty infiltration of the liver. CT of the abdomen did not reveal any significant acute findings. #9 autism Plan EchoCardiogram with Doppler study reveals a severely reduced LV function, prior cardiac catheterization revealed normal coronary arteries with a reduced LV function of 25%. Patient has systolic congestive heart failure acute on chronic. We'll continue current dose of IV Lasix, patient is however refusing medications at this time. Sister is attempting to obtain guardianship of him. DNP note has been reviewed, I agree with a documented findings and plan of care. Patient was seen and examined.
[2017-08-03 16:43] LABS: Glucose,Whole Blood 308 mg/dL (75-99)
[2017-08-03] MEDS ORDERED: ACETAMINOPHEN TAB 325 MG TAB PO PRN (19:49)
[2017-08-03 19:54] LABS: ALT 401 U/L (21-72); AST 597 U/L (17-59); Albumin 3.4 g/dL (3.5-5.0); Alkaline Phosphatase 150 U/L (38-126); Anion Gap 13 mmol/L; Blood Urea Nitrogen 28 mg/dL (9-20); Calcium 8.3 mg/dL (8.4-10.2); Carbon Dioxide 23 mmol/L (22-30); Chloride 98 mmol/L (98-107); Glucose 347 mg/dL (74-99); Potassium 3.7 mmol/L (3.5-5.1); Sodium 134 mmol/L (137-145); Total Bilirubin 1.7 mg/dL (0.2-1.3); Total Protein 6.5 g/dL (6.3-8.2)
[2017-08-03 20:57] LABS: Glucose,Whole Blood 366 mg/dL (75-99)
[2017-08-04 05:52] LABS: Glucose,Whole Blood 276 mg/dL (75-99)
[2017-08-04 06:39] LABS: ALT 370 U/L (21-72); AST 451 U/L (17-59); Albumin 3.4 g/dL (3.5-5.0); Alkaline Phosphatase 150 U/L (38-126); Anion Gap 14 mmol/L; Blood Urea Nitrogen 24 mg/dL (9-20); Calcium 8.3 mg/dL (8.4-10.2); Carbon Dioxide 24 mmol/L (22-30); Chloride 98 mmol/L (98-107); Glucose 301 mg/dL (74-99); Potassium 3.4 mmol/L (3.5-5.1); Sodium 136 mmol/L (137-145); Total Bilirubin 1.4 mg/dL (0.2-1.3); Total Protein 6.2 g/dL (6.3-8.2)
[2017-08-04] MEDS: INSULIN ASPART 100 UNIT/ML 1 ML 10 ML VIAL SQ SCH ×4 (06:43→21:01)
[2017-08-04] MEDS: LEVOTHYROXINE 25 MCG TAB PO SCH (06:43)
[2017-08-04] MEDS: LISINOPRIL 5 MG TAB PO SCH (08:12)
[2017-08-04] MEDS: FUROSEMIDE 10 MG/ML 4 ML VIAL IV SCH ×2 (08:12→21:01)
[2017-08-04] MEDS: DIGOXIN 125 MCG TAB PO SCH (08:12)
[2017-08-04] MEDS: ATORVASTATIN 80 MG TAB PO SCH (08:12)
[2017-08-04] MEDS: ASPIRIN 81 MG PO SCH (08:12)
[2017-08-04] MEDS: METOPROLOL TARTRATE 50 MG TAB PO SCH ×2 (08:12→21:00)
[2017-08-04 08:23] LABS: INR 1.8 (<1.2); Prothrombin Time 16.8 sec (9.0-12.0)
[2017-08-04 11:39] LABS: Glucose,Whole Blood 322 mg/dL (75-99)
[2017-08-04] MEDS ORDERED: POTASSIUM CHLORIDE ER 20 MEQ TAB.ER PO STA (11:54)
--- NOTE | 2017-08-04 11:57 | P.PN ---
Subjective Patient was admitted with congestive heart failure exacerbation chronic systolic dysfunction patient appears to have normal coronary syndrome in in the cardiac cath in the past patient respiratory status improved although sodium started dropping and potassium is low which was supplemented. Patient is didn' t answer any of my questions today. We'll increase the dose of Lasix. Patient has elevated troponin possibly of a non-ST elevation myocardial infarction and management as per cardiology. 08/03/2017 No overnight events patient will be continued on IV Lasix. Correct potassium. Blood sugars are elevated patient was started on glyburide although will continue to hold on metformin continue to use sliding scale insulin. Patient was started on Coumadin with repeat INR tomorrow morning. Constitutional: Denied any fatigue denied any fever. Cardio vascular: denied any chest pain, palpitations Gastrointestinal denied any nausea vomiting Pulmonary: Denied any shortness of breath cough Neurologic denied any new focal deficits Objective - Vital Signs Vital signs: Vital Signs Temp 97.5 F L 08/04/17 08:15 Pulse 85 08/04/17 08:15 Resp 18 08/04/17 08:15 BP 103/72 08/04/17 08:15 Pulse Ox 98 08/04/17 08:15 Intake & Output 08/03/17 08/04/17 08/04/17 18:59 06:59 18:59 Intake Total 240 240 Balance 240 240 Weight 105.7 kg 102.9 kg Intake: Oral 240 240 Other: Voiding Method Toilet Toilet Toilet # Voids 2 1 # Bowel Movements 0 - Exam PHYSICAL EXAMINATION: GENERAL: The patient is alert and oriented x3, not in any acute distress. Well developed, well nourished. HEENT: Pupils are round and equally reacting to light. EOMI. No scleral icterus. No conjunctival pallor. Normocephalic, atraumatic. No pharyngeal erythema. No thyromegaly. CARDIOVASCULAR: S1 and S2 present. No murmurs, rubs, or gallops. Unable to assess JVD PULMONARY: Chest is clear to auscultation, no wheezing or crackles. ABDOMEN: Soft, nontender, nondistended, normoactive bowel sounds. No palpable organomegaly. MUSCULOSKELETAL: No joint swelling or deformity. EXTREMITIES: No clubbing, bilateral pedal edema NEUROLOGICAL: Gross neurological examination did not reveal any focal deficits. SKIN: No rashes. - Labs CBC & Chem 7: 08/03/17 05:46 08/04/17 05:58 Labs: Abnormal Lab Results - Last 24 Hours (Table) 08/03/17 08/03/17 08/03/17 Range/Units 16:40 19:29 20:52 PT (9.0-12.0) sec INR (<1.2) Sodium 134 L (137-145) mmol/L Potassium (3.5-5.1) mmol/L BUN 28 H (9-20) mg/dL Glucose 347 H (74-99) mg/dL POC Glucose (mg/dL) 308 H 366 H (75-99) mg/dL Calcium 8.3 L (8.4-10.2) mg/dL Total Bilirubin 1.7 H (0.2-1.3) mg/dL AST 597 H (17-59) U/L ALT 401 H (21-72) U/L Alkaline Phosphatase 150 H (38-126) U/L Total Protein (6.3-8.2) g/dL Albumin 3.4 L (3.5-5.0) g/dL 08/04/17 08/04/17 08/04/17 Range/Units 05:51 05:58 05:58 PT 16.8 H (9.0-12.0) sec INR 1.8 H (<1.2) Sodium 136 L (137-145) mmol/L Potassium 3.4 L (3.5-5.1) mmol/L BUN 24 H (9-20) mg/dL Glucose 301 H (74-99) mg/dL POC Glucose (mg/dL) 276 H (75-99) mg/dL Calcium 8.3 L (8.4-10.2) mg/dL Total Bilirubin 1.4 H (0.2-1.3) mg/dL AST 451 H (17-59) U/L ALT 370 H (21-72) U/L Alkaline Phosphatase 150 H (38-126) U/L Total Protein 6.2 L (6.3-8.2) g/dL Albumin 3.4 L (3.5-5.0) g/dL 08/04/17 Range/Units 11:38 PT (9.0-12.0) sec INR (<1.2) Sodium (137-145) mmol/L Potassium (3.5-5.1) mmol/L BUN (9-20) mg/dL Glucose (74-99) mg/dL POC Glucose (mg/dL) 322 H (75-99) mg/dL Calcium (8.4-10.2) mg/dL Total Bilirubin (0.2-1.3) mg/dL AST (17-59) U/L ALT (21-72) U/L Alkaline Phosphatase (38-126) U/L Total Protein (6.3-8.2) g/dL Albumin (3.5-5.0) g/dL Microbiology - Last 24 Hours (Table) 08/01/17 18:00 Blood Culture - Preliminary Blood No Growth after 48 hours Assessment and Plan Plan: -Non-ST elevation microinfarction: Patient's INR is super therapeutic will be started on Coumadin INR is 1.7 today -Congestive heart failure chronic systolic dysfunction with acute exacerbation patient was an ejection fraction is 20% patient will be started on IV Lasix -Elevated liver enzymes at the to hepatic congestion Lasix as mentioned above, liver enzymes are coming down secondary to hepatic congestion -Atrial fibrillation presently rate controlled, on beta neetu. Patient is on digoxin, level is 0.4 -Type 2 diabetes mellitus : Management as mentioned above -hypertension -Hyper lipidemia -Autism/Asperger's syndrome For above-mentioned chronic medical problems patient will be started and continued on appropriate medications
[2017-08-04] MEDS: B COMPLEX-VIT C-VIT E-ZINC 1 EACH TAB PO SCH (11:59)
--- NOTE | 2017-08-04 13:02 | P.PN ---
Subjective Progress Note Date: 08/04/17 This is a 61-year-old gentleman with history of autism, very difficult to get a history from the patient overall, he states that he's been quite short of breath prior to coming here, I asked him a number of times that he's been having any chest discomfort, he did not answer yes or no to this question. Patient does have history of hypertension, diabetes, hyperlipidemia, chronic persistent atrial fibrillation on Coumadin for anticoagulation. EKG on arrival here showed atrial fibrillation with a rapid ventricular response ST-T wave changes noted in the lateral leads, subsequent EKG continues to show atrial fibrillation heart rate under better control with persistent EKG changes in the lateral leads. Blood pressure on arrival 138/80 with a heart rate of 118 , 100% on room air. CT of the abdomen was performed which did not reveal any significant acute finding. CT of the chest was performed which did not reveal evidence of pulmonary embolism. Ultrasound of the gallbladder was performed which did not reveal any evidence of cholecystitis heterogeneous hyperechoic appearance of the liver could reflect mild diffuse fatty infiltration. No chest x-ray performed. White blood cell count on admission 12.2, hemoglobin 17.6, platelet count 254. Sodium 137, potassium 3.8, BUN 40, creatinine 0.9. Blood glucose on arrival 426. 249 this morning. Magnesium 1.9 this morning. INR 3.7. Total bilirubin on admission 2.5, 1.6 this morning, AST on admission 1475, 1013 this morning. ALT on admission 534, 443 this morning. Alk phos is normal. Troponin on admission 3.2, subsequent troponins 2.9 and 2.4. BNP level not obtained. At the time of my examination this morning, patient is quite sleepy, he is sitting up in the chair. He did state that he slept well last night, he does not want to answer many questions, he asked if we could speak with his sisters with arrive. He denies any chest pain at present while he is sitting up in the chair. 08/03/2017 Patient seen and examined this morning, sister and brother are both at bedside. Patient not eating and drinking much, refusing to take medications. He keeps stating that he only wants to take vitamin B 2. From other hospital, patient did have a cardiac catheterization performed in 2014 which revealed normal coronary artery disease with an ejection fraction of 25-30%. His weight today is down 1 kg from yesterday. White blood cell count 11, hemoglobin 14, platelet count 249. Sodium 136, potassium 3.2, BUN 31, creatinine 0.8. 08/04/2017 Patient seen and examined this morning, sitting up in the chair at bedside. Let pressure 104/70 with a heart rate in the 80s, 98% on room air. I's 1.8, sodium 136, potassium 3.4, BUN 24, creatinine 0.8. Total bilirubin down to 1.4 AST and ALT improving. We'll continue IV Lasix and repeat chest x-ray tomorrow. Objective - Vital Signs Vital signs: Vital Signs Temp 97.6 F 08/04/17 12:15 Pulse 100 08/04/17 12:15 Resp 18 08/04/17 12:15 BP 97/57 08/04/17 12:15 Pulse Ox 96 08/04/17 12:15 Intake & Output 08/03/17 08/04/17 08/04/17 18:59 06:59 18:59 Intake Total 240 240 Balance 240 240 Weight 105.7 kg 102.9 kg Intake: Oral 240 240 Other: Voiding Method Toilet Toilet Toilet # Voids 2 1 2 # Bowel Movements 0 0 - Exam PHYSICAL EXAMINATION: HEENT: Head is atraumatic, normocephalic. Pupils equal, round. Neck is supple. There is no elevated jugular venous pressure. HEART EXAMINATION: Heart S1 and S2 irregular irregular a systolic murmur is heard. CHEST EXAMINATION: Lungs are clear with diminished air entry to bilateral bases. ABDOMEN: Soft, nontender. Bowel sounds are heard. No organomegaly noted. EXTREMITIES: 2+ peripheral pulses with no evidence of peripheral edema and no calf tenderness noted. NEUROLOGIC [patient is awake, alert refusing to take medications or eat food, refusing to answer questions. - Labs CBC & Chem 7: 08/03/17 05:46 08/04/17 05:58 Labs: Abnormal Lab Results - Last 24 Hours (Table) 08/03/17 08/03/17 08/03/17 Range/Units 16:40 19:29 20:52 PT (9.0-12.0) sec INR (<1.2) Sodium 134 L (137-145) mmol/L Potassium (3.5-5.1) mmol/L BUN 28 H (9-20) mg/dL Glucose 347 H (74-99) mg/dL POC Glucose (mg/dL) 308 H 366 H (75-99) mg/dL Calcium 8.3 L (8.4-10.2) mg/dL Total Bilirubin 1.7 H (0.2-1.3) mg/dL AST 597 H (17-59) U/L ALT 401 H (21-72) U/L Alkaline Phosphatase 150 H (38-126) U/L Total Protein (6.3-8.2) g/dL Albumin 3.4 L (3.5-5.0) g/dL 08/04/17 08/04/17 08/04/17 Range/Units 05:51 05:58 05:58 PT 16.8 H (9.0-12.0) sec INR 1.8 H (<1.2) Sodium 136 L (137-145) mmol/L Potassium 3.4 L (3.5-5.1) mmol/L BUN 24 H (9-20) mg/dL Glucose 301 H (74-99) mg/dL POC Glucose (mg/dL) 276 H (75-99) mg/dL Calcium 8.3 L (8.4-10.2) mg/dL Total Bilirubin 1.4 H (0.2-1.3) mg/dL AST 451 H (17-59) U/L ALT 370 H (21-72) U/L Alkaline Phosphatase 150 H (38-126) U/L Total Protein 6.2 L (6.3-8.2) g/dL Albumin 3.4 L (3.5-5.0) g/dL 08/04/17 Range/Units 11:38 PT (9.0-12.0) sec INR (<1.2) Sodium (137-145) mmol/L Potassium (3.5-5.1) mmol/L BUN (9-20) mg/dL Glucose (74-99) mg/dL POC Glucose (mg/dL) 322 H (75-99) mg/dL Calcium (8.4-10.2) mg/dL Total Bilirubin (0.2-1.3) mg/dL AST (17-59) U/L ALT (21-72) U/L Alkaline Phosphatase (38-126) U/L Total Protein (6.3-8.2) g/dL Albumin (3.5-5.0) g/dL Microbiology - Last 24 Hours (Table) 08/01/17 18:00 Blood Culture - Preliminary Blood No Growth after 48 hours Assessment and Plan Plan: Assessment and plan #1 symptoms of shortness of breath with evidence of PND and orthopnea suggesting congestive heart failure. Shortness of breath could also been exasperated by Jim neumann with RVR. We will obtain a chest x-ray and BNP level. #2 possible non-Q-wave myocardial infarction, initial troponin 3.2 subsequent troponin 2.9 and 2.4. We will obtain an echocardiogram with Doppler study. EKG shows atrial fibrillation with ST-T wave changes noted in the lateral leads. #3 chronic persistent atrial fibrillation on Coumadin for anticoagulation, INR 3.7. #4 diabetes, uncontrolled # 5 hypertension #6 hyperlipidemia #7 autism #8 elevated liver enzymes, likely secondary to congestion. Ultrasound of the gallbladder did not reveal evidence for acute cholecystitis possible fatty infiltration of the liver. CT of the abdomen did not reveal any significant acute findings. #9 autism Plan EchoCardiogram with Doppler study reveals a severely reduced LV function, prior cardiac catheterization revealed normal coronary arteries with a reduced LV function of 25%. Patient has systolic congestive heart failure acute on chronic. We'll continue current dose of IV Lasix, repeat chest x-ray. DNP note has been reviewed, I agree with a documented findings and plan of care. Patient was seen and examined.
[2017-08-04] MEDS: glipiZIDE 10 MG TAB PO SCH ×2 (14:13→17:01)
[2017-08-04 17:01] LABS: Glucose,Whole Blood 386 mg/dL (75-99)
[2017-08-04] MEDS: WARFARIN 2 MG TAB PO SCH (17:01)
[2017-08-04 20:49] LABS: Glucose,Whole Blood 328 mg/dL (75-99)
[2017-08-05 05:46] LABS: Glucose,Whole Blood 278 mg/dL (75-99)
[2017-08-05 06:43] LABS: Anion Gap 14 mmol/L; Blood Urea Nitrogen 22 mg/dL (9-20); Calcium 8.6 mg/dL (8.4-10.2); Carbon Dioxide 23 mmol/L (22-30); Chloride 98 mmol/L (98-107); Glucose 337 mg/dL (74-99); Potassium 3.7 mmol/L (3.5-5.1); Sodium 135 mmol/L (137-145)
[2017-08-05] MEDS: INSULIN ASPART 100 UNIT/ML 1 ML 10 ML VIAL SQ SCH ×3 (06:47→17:00)
[2017-08-05] MEDS: LEVOTHYROXINE 25 MCG TAB PO SCH (06:47)
[2017-08-05] MEDS: glipiZIDE 10 MG TAB PO SCH (06:47)
[2017-08-05 08:43] LABS: INR 1.6 (<1.2); Prothrombin Time 14.4 sec (9.0-12.0)
[2017-08-05] MEDS: FUROSEMIDE 10 MG/ML 4 ML VIAL IV SCH (08:55)
[2017-08-05] MEDS: METOPROLOL TARTRATE 50 MG TAB PO SCH (08:56)
[2017-08-05] MEDS: LISINOPRIL 5 MG TAB PO SCH (08:56)
[2017-08-05] MEDS: DIGOXIN 125 MCG TAB PO SCH (08:56)
[2017-08-05] MEDS: ASPIRIN 81 MG PO SCH (08:56)
[2017-08-05] MEDS: ATORVASTATIN 80 MG TAB PO SCH (08:56)
[2017-08-05 09:10] VITALS: RESP 18
[2017-08-05] MEDS: B COMPLEX-VIT C-VIT E-ZINC 1 EACH TAB PO SCH (11:25)
[2017-08-05 11:36] VITALS: PULSE 67; TEMP 96.8
[2017-08-05 11:57] LABS: Glucose,Whole Blood 325 mg/dL (75-99)
--- NOTE | 2017-08-05 14:28 | P.DS ---
Providers Date of admission: 08/01/17 20:10 Attending physician: Elly Hernandez Consults: 08/01/17 20:10 Consult Physician Urgent Consulting Provider: Reena Herr Consult Reason/Comments: nstemi Do you want consulting provider notified?: Yes Primary care physician: Nba [facility] Course: Patient was admitted with congestive heart failure exacerbation chronic systolic dysfunction patient appears to have normal coronary syndrome in in the cardiac cath in the past patient respiratory status improved although sodium started dropping and potassium is low which was supplemented. Patient is didn' t answer any of my questions today. We'll increase the dose of Lasix. Patient has elevated troponin possibly of a non-ST elevation myocardial infarction and management as per cardiology. 08/03/2017 No overnight events patient will be continued on IV Lasix. Correct potassium. Blood sugars are elevated patient was started on glyburide although will continue to hold on metformin continue to use sliding scale insulin. Patient was started on Coumadin with repeat INR tomorrow morning. 08/05/2017 Patient is fairly euvolemic at this point of time patient will be discharged today patient blood sugars are elevated will add sitagliptin because I do not believe patient is going to take insulin. PHYSICAL EXAMINATION: GENERAL: The patient is alert and oriented x3, not in any acute distress. Well developed, well nourished. HEENT: Pupils are round and equally reacting to light. EOMI. No scleral icterus. No conjunctival pallor. Normocephalic, atraumatic. No pharyngeal erythema. No thyromegaly. CARDIOVASCULAR: S1 and S2 present. No murmurs, rubs, or gallops. Unable to assess JVD PULMONARY: Chest is clear to auscultation, no wheezing or crackles. ABDOMEN: Soft, nontender, nondistended, normoactive bowel sounds. No palpable organomegaly. MUSCULOSKELETAL: No joint swelling or deformity. EXTREMITIES: No clubbing, bilateral pedal edema improved compared to admission patient has an ulcer in the lateral aspect of the left leg just below the knee joint which is clean base doesn't appear to be infected NEUROLOGICAL: Gross neurological examination did not reveal any focal deficits. SKIN: No rashes. Assessment and Plan Plan: -Non-ST elevation Myocardial infarction: Patient had elevated INR coronary artery evaluated the patient no further intervention at this point of time please refer to cardiology due to dictation for further details -Congestive heart failure chronic systolic dysfunction with acute exacerbation patient was an ejection fraction is 20% patient was switched to oral Lasix U anemic at this time -Elevated liver enzymes at the to hepatic congestion Lasix as mentioned above, liver enzymes are coming down secondary to hepatic congestion -Atrial fibrillation presently rate controlled, on beta neetu. Patient is on digoxin, level is 0.4 -Type 2 diabetes mellitus : Management as mentioned above -hypertension -Hyper lipidemia -Autism/Asperger's syndrome Patient Condition at Discharge: Serious Plan - Discharge Summary Discharge Rx Participant: No New Discharge Prescriptions: New glipiZIDE [Glucotrol] 10 mg PO BID-W/MEALS tab Metoprolol Tartrate [Lopressor] 50 mg PO BID #60 tab sitaGLIPtin PHOSPHATE [Januvia] 50 mg PO DAILY #30 tab Warfarin [Coumadin] 4 mg PO DAILY@1800 #30 tab Continue Lisinopril [Zestril] 5 mg PO DAILY Levothyroxine Sodium [Synthroid] 25 mcg PO DAILY Digoxin [Digitek] 125 mcg PO DAILY Furosemide [Lasix] 80 mg PO BID Changed metFORMIN HCL 1,000 mg PO BID #0 Discontinued glyBURIDE [Diabeta] 10 mg PO DAILY Metoprolol Tartrate [Lopressor] 100 mg PO DAILY Spironolactone [Aldactone] 25 mg PO DAILY Warfarin [Coumadin] 5 mg PO DAILY Discharge Medication List Digoxin [Digitek] 125 mcg PO DAILY 08/01/17 [History] Furosemide [Lasix] 80 mg PO BID 08/01/17 [History] Levothyroxine Sodium [Synthroid] 25 mcg PO DAILY 08/01/17 [History] Lisinopril [Zestril] 5 mg PO DAILY 08/01/17 [History] Metoprolol Tartrate [Lopressor] 50 mg PO BID #60 tab 08/05/17 [Rx] Warfarin [Coumadin] 4 mg PO DAILY@1800 #30 tab 08/05/17 [Rx] glipiZIDE [Glucotrol] 10 mg PO BID-W/MEALS tab 08/05/17 [Rx] metFORMIN HCL 1,000 mg PO BID #0 08/05/17 [Rx] sitaGLIPtin PHOSPHATE [Januvia] 50 mg PO DAILY #30 tab 08/05/17 [Rx] Follow up Appointment(s)/Referral(s): Nba Castro MD [Primary Care Provider] - 3 Days Ambulatory/Diagnostic Orders: Basic Metabolic Panel [LAB.AMB] Location: Determined By Patient Prothrombin Time INR [LAB.AMB] Time Frame: 3 Days, Location: Determined By Patient
--- NOTE | 2017-08-05 14:29 | P.PN ---
Subjective Progress Note Date: 08/05/17 This is a 61-year-old gentleman with history of autism, very difficult to get a history from the patient overall, he states that he's been quite short of breath prior to coming here, I asked him a number of times that he's been having any chest discomfort, he did not answer yes or no to this question. Patient does have history of hypertension, diabetes, hyperlipidemia, chronic persistent atrial fibrillation on Coumadin for anticoagulation. EKG on arrival here showed atrial fibrillation with a rapid ventricular response ST-T wave changes noted in the lateral leads, subsequent EKG continues to show atrial fibrillation heart rate under better control with persistent EKG changes in the lateral leads. Blood pressure on arrival 138/80 with a heart rate of 118 , 100% on room air. CT of the abdomen was performed which did not reveal any significant acute finding. CT of the chest was performed which did not reveal evidence of pulmonary embolism. Ultrasound of the gallbladder was performed which did not reveal any evidence of cholecystitis heterogeneous hyperechoic appearance of the liver could reflect mild diffuse fatty infiltration. No chest x-ray performed. White blood cell count on admission 12.2, hemoglobin 17.6, platelet count 254. Sodium 137, potassium 3.8, BUN 40, creatinine 0.9. Blood glucose on arrival 426. 249 this morning. Magnesium 1.9 this morning. INR 3.7. Total bilirubin on admission 2.5, 1.6 this morning, AST on admission 1475, 1013 this morning. ALT on admission 534, 443 this morning. Alk phos is normal. Troponin on admission 3.2, subsequent troponins 2.9 and 2.4. BNP level not obtained. At the time of my examination this morning, patient is quite sleepy, he is sitting up in the chair. He did state that he slept well last night, he does not want to answer many questions, he asked if we could speak with his sisters with arrive. He denies any chest pain at present while he is sitting up in the chair. 08/03/2017 Patient seen and examined this morning, sister and brother are both at bedside. Patient not eating and drinking much, refusing to take medications. He keeps stating that he only wants to take vitamin B 2. From other hospital, patient did have a cardiac catheterization performed in 2014 which revealed normal coronary artery disease with an ejection fraction of 25-30%. His weight today is down 1 kg from yesterday. White blood cell count 11, hemoglobin 14, platelet count 249. Sodium 136, potassium 3.2, BUN 31, creatinine 0.8. 08/04/2017 Patient seen and examined this morning, sitting up in the chair at bedside. Let pressure 104/70 with a heart rate in the 80s, 98% on room air. I's 1.8, sodium 136, potassium 3.4, BUN 24, creatinine 0.8. Total bilirubin down to 1.4 AST and ALT improving. We'll continue IV Lasix and repeat chest x-ray tomorrow. 08/05/2017 seen and examined this morning, blood pressure 105/72 heart rate in the 60s, 97% on room air. INR today is 1.6. Weight is unchanged from yesterday. IV Lasix has been discontinued and patient has been started on oral diuretics. Objective - Vital Signs Vital signs: Vital Signs Temp 96.8 F L 08/05/17 11:36 Pulse 67 08/05/17 11:36 Resp 18 08/05/17 11:36 BP 105/72 08/05/17 11:36 Pulse Ox 97 08/05/17 11:36 Intake & Output 08/04/17 08/05/17 08/05/17 18:59 06:59 18:59 Intake Total 960 118 Balance 960 118 Weight 102.9 kg Intake: Oral 960 118 Other: Voiding Method Toilet Toilet # Voids 3 1 1 # Bowel Movements 0 - Exam PHYSICAL EXAMINATION: HEENT: Head is atraumatic, normocephalic. Pupils equal, round. Neck is supple. There is no elevated jugular venous pressure. HEART EXAMINATION: Heart S1 and S2 irregular irregular a systolic murmur is heard. CHEST EXAMINATION: Lungs are clear with diminished air entry to bilateral bases. ABDOMEN: Soft, nontender. Bowel sounds are heard. No organomegaly noted. EXTREMITIES: 2+ peripheral pulses with no evidence of peripheral edema and no calf tenderness noted. NEUROLOGIC [patient is awake, alert refusing to take medications or eat food, refusing to answer questions. - Labs CBC & Chem 7: 08/03/17 05:46 08/05/17 05:32 Labs: Abnormal Lab Results - Last 24 Hours (Table) 05/06/1908/04/17 08/05/17 Range/Units 16:59 20:48 05:32 PT (9.0-12.0) sec INR (<1.2) Sodium 135 L (137-145) mmol/L BUN 22 H (9-20) mg/dL Glucose 337 H (74-99) mg/dL POC Glucose (mg/dL) 386 H 328 H (75-99) mg/dL 08/05/17 08/05/17 08/05/17 Range/Units 05:45 08:18 11:56 PT 14.4 H (9.0-12.0) sec INR 1.6 H (<1.2) Sodium (137-145) mmol/L BUN (9-20) mg/dL Glucose (74-99) mg/dL POC Glucose (mg/dL) 278 H 325 H (75-99) mg/dL Microbiology - Last 24 Hours (Table) 08/01/17 18:00 Blood Culture - Preliminary Blood No Growth after 72 hours Assessment and Plan Plan: Assessment and plan #1 symptoms of shortness of breath with evidence of PND and orthopnea suggesting congestive heart failure. Shortness of breath could also been exasperated by Jim neumann with RVR. We will obtain a chest x-ray and BNP level. #2 possible non-Q-wave myocardial infarction, initial troponin 3.2 subsequent troponin 2.9 and 2.4. We will obtain an echocardiogram with Doppler study. EKG shows atrial fibrillation with ST-T wave changes noted in the lateral leads. #3 chronic persistent atrial fibrillation on Coumadin for anticoagulation, INR 3.7. #4 diabetes, uncontrolled # 5 hypertension #6 hyperlipidemia #7 autism #8 elevated liver enzymes, likely secondary to congestion. Ultrasound of the gallbladder did not reveal evidence for acute cholecystitis possible fatty infiltration of the liver. CT of the abdomen did not reveal any significant acute findings. #9 autism Plan EchoCardiogram with Doppler study reveals a severely reduced LV function, prior cardiac catheterization revealed normal coronary arteries with a reduced LV function of 25%. Patient has systolic congestive heart failure acute on chronic. Lasix has been discontinued and patient has been started on oral diuretics. We will also recommend to continue the rest the current medications. Discharge planning in place. DNP note has been reviewed, I agree with a documented findings and plan of care. Patient was seen and examined.
[2017-08-05] MEDS ORDERED: FUROSEMIDE 80 MG TAB PO SCH (16:00)
[2017-08-05] MEDS ORDERED: FUROSEMIDE 40 MG TAB PO SCH (16:00)
[2017-08-05 16:30] LABS: Glucose,Whole Blood 280 mg/dL (75-99)
[2017-08-05 16:59] VITALS: BP 117/82
[2017-08-05] MEDS: WARFARIN 2 MG TAB PO SCH (17:00)
== END 2017-08-05 17:55 | disposition home or self-care (01) | DRG 280 ==
LOC: EC 16:14 → SUPCPDRO 16:14 → 6SEL 20:10
PROVIDERS: ADMIT Hospitalist; ATTEND Hospitalist
DX: I21.4 Non-ST elevation (NSTEMI) myocardial infarction (principal); I50.23 Acute on chronic systolic (congestive) heart failure; F84.5 Asperger's syndrome; I11.0 Hypertensive heart disease with heart failure; K76.1 Chronic passive congestion of liver; E11.65 Type 2 diabetes mellitus with hyperglycemia; E78.5 Hyperlipidemia, unspecified; F41.9 Anxiety disorder, unspecified; M19.90 Unspecified osteoarthritis, unspecified site; R79.1 Abnormal coagulation profile; I48.2 Chronic atrial fibrillation; R01.1 Cardiac murmur, unspecified; K76.0 Fatty (change of) liver, not elsewhere classified; Z79.899 Other long term (current) drug therapy; Z79.84 Long term (current) use of oral hypoglycemic drugs; Z79.890 Hormone replacement therapy; Z81.1 Family history of alcohol abuse and dependence; Z83.3 Family history of diabetes mellitus; Z82.49 Family history of ischemic heart disease and other diseases of the circulatory system; Z79.01 Long term (current) use of anticoagulants
CPT/HCPCS: 36415; 71046; 71275; 74177; 76705; 80048; 80053; 80061; 80162; 82550; 82553; 83036; 83520; 83690; 83735; 83880; 84484; 85025; 85027; 85610; 85730; 87040; 93005; 93306; 94760; 96365; 96366; 99291

== ENCOUNTER → 2017-08-08 | Outpatient (CLI) | payer SELFPAY ==
[2017-08-08 13:36] LABS: INR 2.7 (<1.2); Prothrombin Time 24.4 sec (9.0-12.0)
[2017-08-08 13:55] LABS: Anion Gap 15 mmol/L; Blood Urea Nitrogen 28 mg/dL (9-20); Calcium 8.9 mg/dL (8.4-10.2); Carbon Dioxide 26 mmol/L (22-30); Chloride 96 mmol/L (98-107); Glucose 375 mg/dL (74-99); Potassium 4.1 mmol/L (3.5-5.1); Sodium 137 mmol/L (137-145)
== END | disposition home or self-care (01) ==
LOC: LABWHC1 12:51
PROVIDERS: ATTEND Internal Medicine
DX: Z51.81 Encounter for therapeutic drug level monitoring (principal); Z79.01 Long term (current) use of anticoagulants; Z79.899 Other long term (current) drug therapy
CPT/HCPCS: 36415; 80048; 85610